=== PATIENT | male | born 1960 | race Caucasian/White ===

== ENCOUNTER 2020-02-05 22:26 | Emergency (ER) | payer BC, SELFPAY ==
--- NOTE | ~2020-02-05 | XR_ITS ---
EXAMINATION: XR chest 1V portable EXAM DATE: 02/05/2020 22:57 INDICATION: Right-sided chest pain, history high blood pressure. TECHNIQUE: Portable AP frontal chest x-ray was obtained. Comparison is made to prior examination from 05/07/2018. FINDINGS: The lungs are clear. There are no pleural effusions. The cardiomediastinal silhouette is within normal limits. There is no pneumothorax suspected. The bones and soft tissues are unremarkab le. IMPRESSION: No acute cardiopulmonary findings. Reviewed, dictated and finalized at location A.
--- NOTE | 2020-02-05 22:30 | ED.CHESTPAIN ---
HPI - Chest Pain General Chief Complaint: Chest Pain Stated Complaint: cp Time Seen by Provider: 02/05/20 22:29 Source: patient and RN notes reviewed Mode of arrival: other Limitations: no limitations History of Present Illness HPI narrative: Pt is a 59 y/o male who presents to the ED with c/o intermittent left sided chest pain that began 2 weeks ago, but has not gone away. Pt describes his pain as a muscle cramp. Pt has his pain at rest, but his pain gets better with activity. He states that his pain will last for 1 minute or 5-10 minutes. Pt denies any new lifting, new exercises, and being around any sick contacts. Pt also denies a fever, dyspnea, and chills. MD complaint: chest pain Onset (ago): week(s) (2) Timing of current episode: still present and other (intermittent) Onset: during rest Pain location: left chest Pain radiation: none Quality: other (muscle cramp) Relieving factors: movement Associated symptoms: other (denies associated symptoms) Treatment prior to arrival: none Related Data Home Medications Medication Instructions Recorded Confirmed amlodipine 5 mg tablet 5 mg PO DAILY 09/15/19 amlodipine 5 mg tablet 5 mg PO DAILY 09/17/19 Allergies Allergy/AdvReac Type Severity Reaction Status Date / Time No Known Allergies Allergy Unverified 05/07/18 12:01 Review of Systems Review of Systems: All systems reviewed & are unremarkable except as noted in HPI and below Constitutional: Constitutional: Denies chills and Denies fever(s) Cardiovascular: Cardiovascular: Reports chest pain (left sided) Respiratory: Respiratory: Denies dyspnea PMFSH Past Medical History Medical History (Updated 02/07/20 @ 00:00 by Leesa Dudley) Ear infection HTN (hypertension) Hyperlipidemia Type II diabetes mellitus Surgical History Surgical History (Updated 02/05/20 @ 22:50 by Alejandra Corley) Surgical history unknown Social History Social History Smoking status: Never smoker Alcohol intake: never Exam Narrative: Exam Narrative: General appearance: Well-developed, well-nourished Skin: Normal color Head: Normocephalic, nontraumatic Eyes: Clear conjunctiva ENT: Oropharynx normal, ears normal, nose normal Neck: Supple, nontender Chest and respiratory: Airway patent, no respiratory distress, no accessory muscle use Heart: Regular rate/rhythm Abdomen: Soft, nontender, no organomegaly, quiet bowel sounds Vascular: Normal peripheral pulses, normal capillary refill. 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 Waiting for d-dimer results. Lela our nurse practitioner will follow. Date: 02/06/20 Time: 00:00 Vital Signs Vital signs: Vital Signs Temperature 37.2 C 02/05/20 22:34 Pulse Rate 75 02/05/20 22:34 Respiratory Rate 18 02/05/20 22:34 Blood Pressure 171/96 H 02/05/20 22:34 Pulse Oximetry 99 02/05/20 22:34 Temperature 37.2 C 02/05/20 22:34 Pulse Rate 77 02/06/20 00:29 Respiratory Rate 16 02/06/20 00:29 Blood Pressure 132/90 02/06/20 00:29 Pulse Oximetry 97 02/06/20 00:29 MDM - Chest Pain MDM Narrative Medical decision making narrative: Intermittent right chest pain, sharp, comes at rest, resolved with activity. Cardiac cause is less likely. Patient works in physical job. Patient denies any fever, chills, nausea, vomiting, respiratory symptoms or radiation of pain. History of hypertension, does not smoke or drink. Patient lives alone. My plan to get some labs, chest x-ray, further
[2020-02-05 22:34] VITALS: BP 171/96; PULSE 75; RESP 18; TEMP 37.2; O2SAT 99
--- NOTE | 2020-02-05 22:38 | ECG_ITS ---
Measurements Intervals [place] Rate: 64 P: 34 VA: 203 QRS: 35 QRSD: 85 T: 58 QT: 354 QTc: 367 Interpretive Statements SINUS RHYTHM EARLY PRECORDIAL R/S TRANSITION BASELINE ARTIFACT- I, II, III BORDERLINE ECG Electronically Signed On 02-06-2020 7:12:39 CDT by Price Vernon D.O.
[2020-02-05 23:12] VITALS: PULSE 76
[2020-02-05 23:14] LABS: Basophils Absolute Auto 0.1 K/mm3 (0.0-0.1); Basophils Percent Auto 0.5 % (0.2-1.2); Eosinophils Absolute Auto 0.2 K/mm3 (0-0.3); Eosinophils Percent Auto 1.9 % (0-4.4); Hematocrit 47.9 % (42.0-52.0); Hemoglobin 15.3 g/dL (14.0-18.0); Immature Granulocyte Absolute 0.08 K/mm3 (0.00-0.031); Immature Granulocyte Percent A 0.8 % (0-0.5); Lymphocytes Absolute Auto 2.91 K/mm3 (0.9-3.2); Lymphocytes Percent Auto 30.4 % (18.3-44.2); Mean Corpuscular HGB Conc 31.9 g/dl (32-36); Mean Corpuscular Hemoglobin 29.3 pg (26-34); Mean Corpuscular Volume 91.8 fl (80-100); Mean Platelet Volume 10.9 fl (7.4-10.4); Monocytes Absolute Auto 0.9 K/mm3 (0.1-0.6); Neutrophils Absolute Auto 5.5 K/mm3 (1.3-6.7); Neutrophils Percent Auto 57.4 % (45.5-73.1); Platelet Count Result 216 k/mm3 (150-375); Red Blood Count 5.22 M/mm3 (4.6-6.20); Red Cell Distribution Width 13.8 % (11.5-14.5); White Blood Count 9.6 K/mm3 (4.5-10.0)
[2020-02-05 23:17] VITALS: BP 150/95; PULSE 81; RESP 12; O2SAT 95
[2020-02-05 23:33] LABS: Alanine Aminotransferase 26 U/L (4-50); Albumin Level 4.1 g/dL (3.5-5.1); Alkaline Phosphatase 47 U/L (38-126); Aspartate Amino Transferase 24 U/L (17-59); Bilirubin,Total 0.2 mg/dL (0.2-1.3); Blood Urea Nitrogen 24 mg/dL (9-20); Calcium 9.2 mg/dL (8.4-10.2); Carbon Dioxide 26 mmol/L (22-30); Chloride 105 mmol/L (98-107); Estimated CRCL calculation 64 ml/min; Estimated Glomerular Filt Rate 52; Glucose 135 mg/dL (75-110); Potassium 3.6 mmol/L (3.4-5.0); Sodium 139 mmol/L (137-145)
[2020-02-05 23:37] LABS: Troponin I < 0.012 ng/mL (0.000-0.034)
[2020-02-06 00:12] LABS: D Dimer 0.27 ug/mL (<0.48)
[2020-02-06 00:29] VITALS: BP 132/90; PULSE 77; RESP 16; O2SAT 97
== END 2020-02-06 00:15 | disposition home or self-care (01) ==
PROVIDERS: Emergency Provider Emergency Medicine; PCP Emergency Medicine
DX: R07.9 Chest pain, unspecified (principal); I10 Essential (primary) hypertension; E78.5 Hyperlipidemia, unspecified; E11.9 Type 2 diabetes mellitus without complications; R94.31 Abnormal electrocardiogram [ECG] [EKG]
CPT/HCPCS: 36415; 71045; 80053; 84484; 85025; 85380; 93005; 99284

== ENCOUNTER 2021-03-01 21:20 | Emergency (ER) | payer BC, SELFPAY ==
--- NOTE | ~2021-03-01 | XR_ITS ---
EXAMINATION: XR finger 3rd LT min 2V DATE: 03/01/2021 22:13 INDICATION: Left hand third digit injury. TECHNIQUE: 3 views of left hand third digit were obtained. COMPARISON: None. FINDINGS: Bone alignment is normal. No fracture. 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 No radiopaque foreign body. IMPRESSION: 1. No fracture or radiopaque foreign body. Reviewed, dictated and finalized at location A.
[2021-03-01 21:23] VITALS: BP 178/107; PULSE 52; RESP 18; TEMP 36.4; O2SAT 97
[2021-03-01] MEDS: TETANUS,DIPHTHERIA,AC PERTUSSIS ADULT (0.5 ML) BOOSTRIX IM (22:06)
--- NOTE | 2021-03-01 22:44 | PC.NURSE ---
Patient washing hands with soap and water in sink at this time. Patient's finger numbed by the EDP prior to this cleaning. Patient still reports discomfort with cleaning the finger.
--- NOTE | 2021-03-01 22:48 | ED.WOUNDLAC ---
HPI - Wound/Laceration General Chief Complaint: Wound/Laceration Stated Complaint: finger lac Time Seen by Provider: 03/01/21 22:22 History of Present Illness HPI narrative: Patient is a 60-year-old male who presents ER with laceration to his left third digit. He was working with a band saw when he caught his finger. No numbness or tingling. He maintains full range of motion. Unknown last tetanus shot. Occurred around 8:30 PM. Related Data Allergies Allergy/AdvReac Type Severity Reaction Status Date / Time No Known Allergies Allergy Verified 03/01/21 21:51 Review of Systems Review of Systems: All systems reviewed & are unremarkable except as noted in HPI and below Musculoskeletal: Musculoskeletal: Denies arthralgias, Denies joint swelling and Denies muscle cramps Integumentary/Breasts: Skin/Breast: Denies pruritus and Denies erythema Comments: Finger laceration Neurologic: Denies focal weakness and Denies numbness PMFSH Past Medical History Medical History Ear infection HTN (hypertension) HTN (hypertension) Hyperlipidemia Type II diabetes mellitus Surgical History Surgical History Surgical history unknown Social History Social History Smoking status: Never smoker Alcohol intake: never Exam Narrative: Exam Narrative: GENERAL: Well-appearing, well-nourished, and in no acute distress. HEAD: Normocephalic, atraumatic. EXTREMITIES: Normal range of motion. Left third digit at the fingertip over the fat pad with flap laceration 3 cm in length. No debris seen after thorough irrigation. No exposure under of bone or tendon in a bloodless field. SKIN: Warm, dry, no rash. NEURO: No focal deficits. Alert and oriented x3. PSYCH: Normal mood and affect. Course Course Emergency Course: Wound repaired. Neurovascular intact with normal range of motion of the affected digit. Patient educated on return precautions and verbalized understanding. Vital Signs Vital signs: Vital Signs Temperature 97.6 F 03/01/21 21:23 Pulse Rate 52 L 03/01/21 21:23 Respiratory Rate 18 03/01/21 21:23 Blood Pressure 178/107 H 03/01/21 21:23 Pulse Oximetry 97 03/01/21 21:23 Temperature 97.6 F 03/01/21 21:23 Pulse Rate 52 L 03/01/21 21:23 Respiratory Rate 18 03/01/21 21:23 Blood Pressure 178/107 H 03/01/21 21:23 Pulse Oximetry 97 03/01/21 21:23 Procedures Laceration Laceration 1: Date: 03/01/21 Time: 23:15 Site: other (left 3rd finger) Size (cm): 3 Description: flap and clean Depth: simple, single layer Local Anesthetic: lidocaine 1% and with epi Amount of anesthesia used (mL): 1 Pre-repair: wound explored and irrigated extensively ====== Skin Level ====== Skin layer closed with: nylon Size (cm): 5-0 Number of sutures: 6 Technique: simple, interrupted ====== Subcutaneous Layer ====== ====== Muscle Layer ====== ====== Tendon Layer ====== Discharge Plan Discharge Clinical Impression: Finger laceration Patient Disposition: Home, Self-Care Condition: Stable Instructions: Laceration (ED) Additional Instructions: You will need to have your sutures removed in 14 days. Return to the ER or follow-up with your primary care doctor to have this performed. Return the ER immediately if you develop fever over 100.4 ?F, there is pus draining out of your wound, you have red streaking up your arm, or you have additional concerns. Prescriptions: No Action metoprolol succinate [Toprol XL] 100 mg tablet extended release 24 hr 100 mg PO DAILY Qty: 30 RF: 2 Follow-up/Referrals: Jean-Pierre Snowden MD [Primary Care Provider] - 2 Weeks
--- NOTE | 2021-03-01 23:08 | PC.NURSE ---
Patient moved to room 10. Report to KENTRELL Copeland
--- NOTE | 2021-03-01 23:11 | PC.NURSE ---
EDMD at bedside for laceration repair. Pt presents to ED with complaints of laceration to 2nd digit of left hand. Pt states laceration occurred with a saw at approx 2030. 2cm flap laceration noted. Mild bleeding noted. Pt complaining of minimal pain as finger has been numbed. Laceration repair in progress and pt tolerating well. No complaints or concerns voiced at this time. Pt educated on wound care and cleanliness.
== END 2021-03-01 23:52 | disposition home or self-care (01) ==
PROVIDERS: Emergency Provider Emergency Medicine; PCP Emergency Medicine
DX: S61.213A Laceration without foreign body of left middle finger without damage to nail, initial encounter (principal); Z23 Encounter for immunization; I10 Essential (primary) hypertension; E78.5 Hyperlipidemia, unspecified; E11.9 Type 2 diabetes mellitus without complications; W31.2XXA Contact with powered woodworking and forming machines, initial encounter
CPT/HCPCS: 12002; 73140; 90471; 90714; 90715; 99282

== ENCOUNTER 2022-11-24 01:48 | Inpatient (IN) | payer BC, SELFPAY ==
[2022-11-24] VITALS (24 sets, daily range): BP systolic 110–166; BP diastolic 80–119; PULSE 63–97; RESP 17–24; TEMP 36.2–36.7; O2SAT 90–98; BMI 44.6
--- NOTE | 2022-11-24 | ECHO_ITS ---
Patient Info Name: Jean-Pierre Partida Age: 62 years : 1960 Gender: Male Ht: 67 in Wt: 285 lbs BSA: 2.54 m2 HR: 65 bpm BP: 147 / 91 mmHg Technical Quality: Good Exam Date: 11/24/2022 10:49 AM Exam Location: [facility] Patient Status: Inpatient Admit Date: 11/24/2022 Staff Ordering Physician: John Palma MD Application Coordinator: Eliel Hernandez RDCS, RT Attending Provider: Anurag Kennedy MD Exam Type: CA echo doppler color flow Study Info Indications R06.02 - Shortness of breath Complete two-dimensional, color flow and Doppler transthoracic echocardiogram is performed. Strain analysis performed. Summary 1. Complete two-dimensional, color flow and Doppler transthoracic echocardiogram is performed. 2. Left ventricular chamber dimension is normal. 3. Left ventricular systolic function is normal, estimated at 65-70%. 4. There is mildly increased left ventricular wall thickness. 5. The left ventricular diastolic function is grade I diastolic dysfunction. 6. E/e' 5 is not elevated. 7. Global longitudinal strain is abnormal at -10.4%. 8. No pulmonary hypertension, estimated pulmonary arterial systolic pressure is 38 mmHg. Left Ventricle E/e' 5 is not elevated. Global longitudinal strain is abnormal at -10.4%. Left ventricular chamber dimension is normal. Left ventricular systolic function is normal, estimated at 65-70%. There is mildly increased left ventricular wall thickness. The left ventricular diastolic function is grade I diastolic dysfunction. Right Ventricle Right ventricular systolic function is normal and with normal TAPSE 2.1 cm. Right ventricular chamber dimension is normal. Left Atria Left atrial chamber dimension is normal. Right Atria Right atrial chamber dimension is normal. Aortic Valve The aortic valve is trileaflet. There is no aortic valve stenosis. There is no aortic valve regurgitation. Pulmonic Valve There is no pulmonic regurgitation. Mitral Valve There is no mitral valve stenosis. There is no mitral valve regurgitation. Tricuspid Valve There is no tricuspid valve regurgitation. No pulmonary hypertension, estimated pulmonary arterial systolic pressure is 38 mmHg. Pericardium/Pleural There is no pericardial effusion. Inferior Vena Cava Normal inferior vena cava with >50% collapse upon inspiration consistent with normal right atrial pressure, 5 mmHg. Aorta The aortic root size at the sinus of Valsalva is normal. Left Ventricular Outflow Tract Name Value Normal LVOT 2D LVOT Diameter 2.1 cm LVOT Doppler LVOT Peak Gradient 3 mmHg LVOT Mean Gradient 2 mmHg LVOT VTI 17 cm LVOT VTI/AV VTI Ratio 0.7 LVOT Stroke Volume 61 ml LVOT CO 3.8 l/min LVOT CI 1.5 l/min/m2 Mitral Valve Name Value Normal
--- NOTE | ~2022-11-24 | CT_ITS ---
Clinical Indication: Shortness of breath CT Scan of the Chest with Contrast: Technique: Contiguous sections were acquired throughout the chest after intravenous administration of 100 cc of Omnipaque 350. Coronal maximum intensity projection 3-D reconstructions were created by wang crouch technologist. Dose reduction technique was used on this scan by utilizing automated exposure contr ol and iterative reconstruction technique. The dose-length product (DLP) was 1000.87 mGy-cm. Findings: There is no evidence of any significant mediastinal, hilar or axillary lymphadenopathy. There is a la rge saddle pulmonary embolus with extensive clot burden in the right and left main pulmonary arteries , especially the right side, with extension into lobar and segmental lower arteries, especially the l ower lobes. There is no evidence of aortic dissection or aneurysm. There is apparent increased right ventricle-left ventricle ratio. There is no evidence of pleural or pericardial effusion. A 5 mm noncalcified right lower lobe pulmonary nodule noted (axial image 64). Additional 4 mm noncalc ified right lower lobe pulmonary nodule present (axial image 73). 4 mm left lower lobe pulmonary nodu le noted (axial image 73).. Images through the upper abdomen reveal no abnormalities. Impression: Extensive pulmonary embolus, including large saddle embolus with extensive involvement of the right a nd left main pulmonary arteries, as detailed above. Apparent increased right ventricle-left ventricle ratio, which suggests the possibility of right hear t strain. Subcentimeter pulmonary nodules, as detailed above. According to Fleischner Society criteria, for a l ow-risk patient, no further follow-up required. For a high-risk patient, consider follow-up [address] scan. Acute findings discussed with Dr. Palma at the 11:37 AM on 11/24/2022. Reviewed, dictated and finalized at location M. WORT SETTLER Impression: Extensive pulmonary embolus, including large saddle embolus with extensive invo lvement of the right and left main pulmonary arteries, as detailed above. Apparent increased right ventricle-left ventricle ratio, which suggests the pos sibility of right heart strain. Subcentimeter pulmonary nodules, as detailed above. According to Fleischner Soc iety criteria, for a low-risk patient, no further follow-up required. For a hig h-risk patient, consider follow-up [address] scan. Acute findings discussed with Dr. Palma at the 11:37 AM on 11/24/2022.
--- NOTE | ~2022-11-24 | US_ITS ---
EXAMINATION: US venous doppler [facility] DATE: 11/24/2022 15:06 INDICATION: Lower limb pain and swelling TECHNIQUE: Grayscale ultrasound images without and with compression and Doppler ultrasound images of the bilateral lower extremity veins were obtained. COMPARISON: None. FINDINGS: Noncompressible occlusive appearing thrombus extending throughout the right superficial femoral vein into the popliteal vein and peroneal veins at the calf. The visualized portions of right common femor al vein, profunda (deep) femoral vein, posterior tibial veins, gastrocnemius vein and greater sapheno us vein outflow are patent. The visualized portions of left common femoral vein, profunda femoral vein, femoral vein, popliteal v ein, posterior tibial veins, peroneal veins, gastrocnemius vein and greater saphenous vein outflow ar e patent. IMPRESSION: 1. Extensive occlusive appearing deep venous thrombosis throughout the left superficial femoral vein, popliteal vein and extending to the peroneal veins at the calf. 2. No deep venous thrombosis in the left lower limb. Reviewed, dictated and finalized at location A. ATURE SET BUILDER IMPRESSION: 1. Extensive occlusive appearing deep venous thrombosis throughout the left sup erficial femoral vein, popliteal vein and extending to the peroneal veins at th e calf. 2. No deep venous thrombosis in the left lower limb.
--- NOTE | ~2022-11-24 | XR_ITS ---
Clinical Indication: Shortness of breath PA and lateral views of the chest: Comparison: 02/05/2020 Findings: The lungs are clear, without evidence of focal consolidation or pleural effusion. Cardiome diastinal silhouette is within normal limits. Clear lungs. Probable calcified left hilar lymph nodes noted. Bones and soft tissues are unremarkable. Impression: The lungs. Reviewed, dictated and finalized at location . PRESIDENT FINANCIAL Impression: The lungs.
--- NOTE | 2022-11-24 01:54 | ECG_ITS ---
Measurements Intervals [place] Rate: 89 P: 47 AK: 183 QRS: 18 QRSD: 84 T: -29 QT: 373 QTc: 455 Interpretive Statements SINUS RHYTHM CONSIDER INFERIOR INFARCT, AGE INDETERMINATE T WAVE ABNORMALITY IN ANTERIOR LEADS- CONSIDER ISCHEMIA BASELINE ARTIFACT- I, II, III ABNORMAL ECG COMPARED TO ECG 02/05/2020 22:32:11 T WAVE ABNORMALITY NOW PRESENT Electronically Signed On 11-24-2022 8:17:30 PRODUCTION OPERATIONS INSPECTOR by Price Vernon D.O.
[2022-11-24 02:23] LABS: Basophils Absolute Auto 0.1 K/mm3 (0.0-0.1); Basophils Percent Auto 0.7 % (0.2-1.2); Eosinophils Absolute Auto 0.2 K/mm3 (0-0.3); Eosinophils Percent Auto 1.7 % (0-4.4); Hematocrit 50.9 % (42.0-52.0); Hemoglobin 16.4 g/dL (14.0-18.0); Immature Granulocyte Absolute 0.09 K/mm3 (0.00-0.031); Immature Granulocyte Percent A 0.8 % (0-0.5); Lymphocytes Absolute Auto 2.37 K/mm3 (0.9-3.2); Lymphocytes Percent Auto 21.5 % (18.3-44.2); Mean Corpuscular HGB Conc 32.2 g/dl (32-36); Mean Corpuscular Hemoglobin 29.7 pg (26-34); Mean Corpuscular Volume 92.2 fl (80-100); Mean Platelet Volume 10.6 fl (7.4-10.4); Monocytes Absolute Auto 0.8 K/mm3 (0.1-0.6); Monocytes Percent Auto 7.3 % (2.6-8.5); Neutrophils Absolute Auto 7.5 K/mm3 (1.3-6.7); Platelet Count Result 199 k/mm3 (150-375); Red Blood Count 5.52 M/mm3 (4.6-6.20); Red Cell Distribution Width 14.6 % (11.5-14.5)
[2022-11-24 02:35] LABS: INR 1.1; Prothrombin Time 13.3 Seconds (11.1-14.7)
[2022-11-24 02:36] LABS: Partial Thromboplastin Time 26.9 SECONDS (22.3-36.8)
[2022-11-24] MEDS: IPRATROPIUM BR 0.02% INH SOLN 0.5 MG/2.5 ML VIAL INHALATION (03:05)
[2022-11-24] MEDS: ALBUTEROL SULFATE NEB 2.5 MG/3 ML INH 5 MG INHALATION (03:05)
[2022-11-24 03:08] LABS: Alanine Aminotransferase 37 U/L (6-50); Alkaline Phosphatase 42 U/L (38-126); Anion Gap 7 mmol/L (8-16); Aspartate Amino Transferase 31 U/L (17-59); Bilirubin,Total 0.5 mg/dL (0.2-1.3); Blood Urea Nitrogen 21 mg/dL (9-20); Calcium 9.4 mg/dL (8.4-10.2); Carbon Dioxide 27 mmol/L (22-30); Chloride 106 mmol/L (98-107); Estimated CRCL calculation 75 ml/min; Estimated Glomerular Filt Rate > 60; Glucose 123 mg/dL (65-110); Lipase 64 U/L (23-300); Potassium 3.8 mmol/L (3.4-5.0); Sodium 140 mmol/L (137-145)
[2022-11-24 03:33] LABS: Troponin I 0.037 ng/mL (0.000-0.034)
[2022-11-24 04:55] LABS: Influenza A QL RT-PCR Negative (Negative); Influenza B QL RT-PCR Negative (Negative); RSV RNA, RT-PCR Negative (Negative); SARS-CoV-2 RNA PCR Negative
--- NOTE | 2022-11-24 05:11 | ED.SOB ---
HPI - SOB/Dyspnea General Chief Complaint: Shortness of Breath/Dyspnea Stated Complaint: sob, HTN, Time Seen by Provider: 11/24/22 02:43 History of Present Illness HPI Narrative: Patient is a 62-year-old male who presents ER with shortness of breath. Ongoing over the last couple weeks. Reports he cannot walk to his car and back without being extremely short of breath. Reports he initially had some runny nose about a month ago that has persisted. He does have some postnasal drip that occurs. No wheezing. No fevers or chills or sweats. He reports. He was having related to shortness of breath. No sharp pain in his chest. No pain with deep breath. No leg edema. No history of MA. Related Data Allergies Allergy/AdvReac Type Severity Reaction Status Date / Time No Known Allergies Allergy Verified 11/24/22 01:48 Review of Systems Review of Systems: All systems reviewed & are unremarkable except as noted in HPI and below Constitutional: Constitutional: Denies chills and Denies fever(s) ENT: Denies sore throat Comments: Rhinorrhea Cardiovascular: Cardiovascular: Reports chest pain (heaviness), Denies rapid heart rate and Denies radiating jaw, neck or arm pain Respiratory: Respiratory: Denies cough and Reports dyspnea Comments: Shortness of breath with exertion Gastrointestinal: Gastrointestinal: Denies abdominal pain, Denies nausea and Denies vomiting PMFSH Past Medical History Medical History Ear infection HTN (hypertension) HTN (hypertension) Hyperlipidemia Type II diabetes mellitus Surgical History Surgical History Surgical history unknown Social History Social History Smoking status: Never smoker Alcohol intake: never Exam Narrative: GENERAL: Well-appearing, obese, and in no acute distress. HEAD: Normocephalic, atraumatic. EYES: PERRL and EOMI. ENT: Mucous membranes moist. CHEST: Clear to auscultation. No respiratory distress. HEART: Regular rate and rhythm. Normal peripheral pulses. ABDOMEN: Soft, nontender, nondistended. EXTREMITIES: Normal range of motion. No edema. SKIN: Warm, dry, no rash. NEURO: Alert and oriented x3. PSYCH: Normal mood and affect. Course Course Emergency Course: Patient without persistent chest pain, only shortness of breath when he is exerting himself. Patient feels provement after nebulizer treatment. Discussed elevated troponin and recommendation for admission for trending of the troponin. Patient likely will need a stress test as well. Patient verbalized understanding treatment plan. Vital Signs Vital signs: Vital Signs Temperature 97.9 F 11/24/22 01:50 Pulse Rate 97 11/24/22 01:50 Respiratory Rate 20 11/24/22 01:50 Blood Pressure 164/119 H 11/24/22 01:50 Pulse Oximetry 90 11/24/22 01:50 Oxygen Delivery Room Air 11/24/22 01:50 Temperature 97.9 F 11/24/22 01:50 Pulse Rate 70 11/24/22 05:21 Respiratory Rate 19 11/24/22 05:21 Blood Pressure 140/89 11/24/22 05:21 Pulse Oximetry 93 11/24/22 05:21 Oxygen Delivery Room Air 11/24/22 02:43 MDM - SOB/Dyspnea Lab Data 11/24/22 02:05 11/24/22 02:49 Labs: Lab Results 11/24/22 11/24/22 11/24/22 Range/Units 02:05 02:05 02:49 WBC 11.0 H (4.5-10.0) K/mm3 RBC 5.52 (4.6-6.20) M/mm3 Hgb 16.4 (14.0-18.0) g/dL Hct 50.9 (42.0-52.0) % MCV 92.2 (80-100) fl MCH 29.7 (26-34) pg MCHC 32.2 (32-36) g/dl RDW 14.6 H (11.5-14.5) % Plt Count 199 (150-375) k/mm3 MPV 10.6 H (7.4-10.4) fl Immature Gran % (Auto) 0.8 H (0-0.5) % Neut % (Auto) 68.0 (45.5-73.1) % Lymph % (Auto) 21.5 (18.3-44.2) % [place] % (Auto) 7.3 (2.6-8.5) % Eos % (Auto) 1.7 (0-4.4) % Baso % (Auto) 0.7 (0.2-1.2) % Lymph # (Auto) 2.37
--- NOTE | 2022-11-24 07:14 | PC.NURSE ---
Report given to Lynette PFEIFFER
--- NOTE | 2022-11-24 09:15 | ADMGEN ---
This patient, Jean-Pierre Partida, was admitted to IMU Room 206-01. Patient/family oriented to hospital policies and general routines including ID bracelet, bed and alarms, visiting hours, pain management, procedures, bathroom and other care routines, personal items, smoking policy, room service/diet, and visiting hours. Information on how to activate the Rapid Response Team has been discussed. Patient/Family are encouraged to report perceived risks to care and to ask questions if they do not understand what they are told or what they should do.
--- NOTE | 2022-11-24 09:54 | PM.IMHP ---
H&P: HPI History of Present Illness Date/Time: 11/24/22 09:54 Chief Complaint: shortness of breath Narrative: Patient is a 62-year-old male who presents with shortness of breaht, which is worsening over past month or so. but really got worse this last week. he was not able to ambulate without getting short of breath. he also felt chest tightness in the retrosternum at that time. he reports sinus issues which is chronic. he is supposed to have sleep apnea testing but did not follow up. he also reprots he has right leg swelling whichi is chronic, no hx of dvt. he had injury and tear of the muscle in the past on his right leg. no abdominal pain, nausea, vomiting. has cough due to postnasal drip. no fever, chills. Review of Systems Review of Systems: - CONSTITUTIONAL: Denies weight loss, fever and chills. - HEENT: Denies changes in vision and hearing - RESPIRATORY: reprots SOB and cough. - CV: Denies palpitations and CP. - GI: Denies abdominal pain, nausea, vomiting and diarrhea. - : Denies dysuria and urinary frequency. - MSK: Denies myalgia and joint pain. - SKIN: Denies rash and pruritus. - NEUROLOGICAL: Denies headache and syncope. - PSYCHIATRIC: Denies recent changes in mood. Denies anxiety and depression. All systems reviewed & are unremarkable except as noted in HPI and below PMFSH Past Medical History Medical History (Updated 11/24/22 @ 10:23 by John Palma MD) Ear infection HTN (hypertension) HTN (hypertension) Hyperlipidemia Type II diabetes mellitus Surgical History Surgical History Surgical history unknown Social History Social History Smoking status: Never smoker Alcohol intake: never Meds Home Medications and Allergies Home Medications Medication Instructions Recorded Confirmed Type metoprolol succinate 100 mg 100 mg PO DAILY #90 tabs 08/04/21 Rx tablet,extended release 24 hr (Toprol XL) Allergies Allergy/AdvReac Type Severity Reaction Status Date / Time No Known Allergies Allergy Verified 11/24/22 01:48 Vital Signs Vital Signs - 24 hr 11/24/22 01:50 11/24/22 02:43 11/24/22 02:45 Temperature 97.9 F Pulse Rate 97 80 Respiratory Rate 20 24 H Blood Pressure 164/119 H 160/89 H Pulse Oximetry 90 93 96 Oxygen Delivery Room Air Room Air 11/24/22 03:06 11/24/22 03:22 11/24/22 03:38 Temperature Pulse Rate 68 78 76 Respiratory Rate 18 17 17 Blood Pressure 110/83 Pulse Oximetry 92 Oxygen Delivery 11/24/22 04:09 11/24/22 05:21 11/24/22 07:50 Temperature Pulse Rate 70 66 Respiratory Rate 19 20 Blood Pressure 142/86 H 140/89 131/104 H Pulse Oximetry 93 96 Oxygen Delivery 11/24/22 08:00 Temperature 97.4 F L Pulse Rate 89 Respiratory Rate 20 Blood Pressure 147/91 H Pulse Oximetry 94 Oxygen Delivery Exam Narrative: GENERAL: mrobid obesity, in no acute distress. HEAD: Normocephalic, atraumatic. thick neck EYES: PERRL and EOMI. ENT:? Mucous membranes moist. CHEST: diminished with end expiratory wheeze at bases? No respiratory distress. HEART: Regular rate and rhythm. ? Normal peripheral pulses. ABDOMEN: Soft, nontender, nondistended. EXTREMITIES: Normal range of motion.?right lower extermity edema postiive SKIN: Warm, dry, no rash. stasis dermatitis on right leg NEURO: ? Alert and oriented x3. no focal deficit PSYCH: Normal mood and affect. H&P: Results Labs Labs: Short CBC 11/24/22 Range/Units 02:05 WBC 11.0 H (4.5-10.0) K/mm3 Hgb 16.4 (14.0-18.0) g/dL Hct 50.9 (42.0-52.0) % Plt Count 199 (150-375) k/mm3 BMP 11/24/22 02:49 Sodium 140 Potassium 3.8 Chloride 106 Carbon Dioxide 27 BUN 21 H Creatinine 1.20 Glucose 123 H Calcium 9.4 Cardiac Enzymes 11/24/22 11/24/22 Range/Units 02:49 05:38 Troponin I 0.037 H* 0.030 (0.000-0.
[2022-11-24 10:55] LABS: Cholesterol 201 mg/dL (0-200); HDL Direct 33 mg/dL; Triglycerides 217 mg/dL (<150)
[2022-11-24 11:04] LABS: Hemoglobin A1C 5.9 % (<5.7)
[2022-11-24 11:07] LABS: LDL Cholesterol Direct 136 mg/dL
[2022-11-24] MEDS: LOSARTAN POTASSIUM 50 MG TABLET PO (12:00)
[2022-11-24] MEDS: ENOXAPARIN 100 MG/ML SYRINGE SUB-Q ×2 (12:22→21:08)
[2022-11-24] MEDS: ENOXAPARIN 30 MG/0.3 ML SYRINGE SUB-Q ×2 (12:22→21:08)
[2022-11-24] MEDS: METOPROLOL SUCCINATE EXT REL 100 MG TABCR PO (14:01)
[2022-11-24] MEDS: hydrALAZINE HCL 20 MG/ML VIAL 10 MG IV PUSH (17:20)
[2022-11-24] MEDS: FLUTICASONE PROPIONATE 0.05% NA SPR 16 GM BTL (*BKC) 1 SPRAY NASAL (21:07)
[2022-11-24] MEDS: amLODIPine BESYLATE 5 MG TABLET PO (21:07)
[2022-11-25] VITALS (15 sets, daily range): BP systolic 123–158; BP diastolic 66–93; PULSE 56–85; RESP 20–24; TEMP 36.2–36.6; O2SAT 93–100
[2022-11-25] MEDS: ENOXAPARIN 30 MG/0.3 ML SYRINGE SUB-Q ×2 (09:06→21:26)
[2022-11-25] MEDS: ENOXAPARIN 100 MG/ML SYRINGE SUB-Q ×2 (09:07→21:27)
[2022-11-25] MEDS: LOSARTAN POTASSIUM 50 MG TABLET PO (09:08)
[2022-11-25] MEDS: METOPROLOL SUCCINATE EXT REL 100 MG TABCR PO (09:08)
[2022-11-25] MEDS: FLUTICASONE PROPIONATE 0.05% NA SPR 16 GM BTL (*BKC) 1 SPRAY NASAL ×2 (09:08→21:26)
--- NOTE | 2022-11-25 10:58 | PM.IMPN ---
Progress Note: A&P Assessment and Plan (1) Type II diabetes mellitus: Code(s): E11.9 - Type 2 diabetes mellitus without complications Status: Acute (2) Hyperlipidemia: Code(s): E78.5 - Hyperlipidemia, unspecified Status: Acute (3) HTN (hypertension): Code(s): I10 - Essential (primary) hypertension Status: Acute (4) Screening PSA (prostate specific antigen): Code(s): Z12.5 - Encounter for screening for malignant neoplasm of prostate Status: Acute (5) Excessive daytime sleepiness: Code(s): G47.19 - Other hypersomnia Status: Acute (6) Pulmonary embolism: Code(s): I26.99 - Other pulmonary embolism without acute cor pulmonale Status: Acute Plan Continue Lovenox. 2D echo ejection fraction 65%. seen by Cardiology. Still oxygen Continue nebulizer treatment. Yearly eye exam and foot exam. HBA1c 5.9 ( goal <7.0%) , Renal functions, Liver panel every 3 months Monitor vitamin B12 levels LDL is 136 Will atorvastatin 40 mg daily Optimize SAMUEL-inhibitor and statin currently on losartan and metoprolol, amlodipine Routine glucose monitoring. Watch for Hypoglycemia. BMI goal < 25 65% ejection fraction. EKG Consider SGLT2 inhibitors if okay with Cards Antiplatelet & Statin therapy Loop diuretics as indicate Patient educated about titrating diuretics at home based on weight blood pressure and symptoms. Current blood pressure 158/90. Optimize blood pressure < 130/80 Time Spent With Patient Time: DVT prophylaxis. GI prophylaxis. All records reviewed Discussed plan of care with the nursing staff and with the patient in detail. Answered all questions and concerns from the patient. All labs have been reviewed. Code status updated dictation may have been done utilizing a voice recognition system. Attempts have been made to correct errors. However, there may be uncorrected grammatical, spelling, and recognition errors present. Subjective Date/time seen: 11/25/22 10:58 Interval history: Appears comfortable still has some shortness of breath no cough much improved from yesterday. Patient also had a sleep apnea test done last night Exam Narrative: GENERAL: Well appearing, well-nourished, non-toxic, in no acute distress. HEAD: Normocephalic, atraumatic. NECK: Supple. No adenopathy, no masses. RESPIRATORY: Airway patent, respirations nonlabored. Clear to auscultation bilaterally, no rales, rhonchi, wheezing. CARDIOVASCULAR: Regular rate and rhythm without murmurs, rubs, or gallops. Peripheral pulses 2+ and equal bilaterally. ABDOMINAL: Soft, nontender, nondistended, no hepatosplenomegaly. Normoactive BS. MUSCULOSKELETAL: no Epigastric and no hypochondrial tenderness SKIN: Warm, dry, normal color. No rashes. NEURO: A&O X3. Moves all extremities PSYCHIATRIC: Appropriate mood and affect. Normal interaction. Objective Data Vital Signs Vital Signs: Vital Signs - 24 hr 11/24/22 11:52 11/24/22 14:01 11/24/22 15:56 Temperature 36.2 C L 36.6 C Pulse Rate 78 74 72 Respiratory Rate 20 22 H Blood Pressure 160/103 H 166/110 H Pulse Oximetry 90 95 Oxygen Delivery Oxygen Flow Rate 11/24/22 15:57 11/24/22 12:00 11/24/22 14:00 Temperature Pulse Rate 78 75 Respiratory Rate Blood Pressure 149/86 H Pulse Oximetry Oxygen Delivery Oxygen Flow Rate 11/24/22 16:00 11/24/22 18:00 11/24/22 18:00 Temperature Pulse Rate 63 65 Respiratory Rate Blood Pressure 162/102 H Pulse Oximetry Oxygen Delivery Oxygen Flow Rate 11/24/22 12:00 11/24/22 16:00 11/24/22 20:00 Temperature 36.6 C Pulse Rate 69 Respiratory Rate 22 H Blood Pressure 150/87 H Pulse Oximetry 98 96 97 Oxygen Delivery Nasal Cannula Nasal Cannula Oxygen Flow Rate 2 2 11/24/22 20:51 11/24/22 20:00 11/24/22 20:00 Temperature Pulse Rate 77 68 68 Respiratory Rate 20 20 Blood Pressure Pulse Oximetry
[2022-11-25] MEDS: amLODIPine BESYLATE 5 MG TABLET PO (21:26)
[2022-11-26] VITALS (13 sets, daily range): BP systolic 122–134; BP diastolic 68–78; PULSE 56–93; RESP 22; TEMP 35.6–36.5; O2SAT 9–98
[2022-11-26] MEDS: FLUTICASONE PROPIONATE 0.05% NA SPR 16 GM BTL (*BKC) 1 SPRAY NASAL (09:00)
[2022-11-26] MEDS: ATORVASTATIN 40 MG TABLET PO (09:00)
[2022-11-26] MEDS: ENOXAPARIN 100 MG/ML SYRINGE SUB-Q (09:00)
[2022-11-26] MEDS: METOPROLOL SUCCINATE EXT REL 100 MG TABCR PO (09:00)
[2022-11-26] MEDS: ENOXAPARIN 30 MG/0.3 ML SYRINGE SUB-Q (09:00)
[2022-11-26] MEDS: LOSARTAN POTASSIUM 50 MG TABLET PO (09:00)
--- NOTE | 2022-11-26 09:12 | PM.DS ---
DS: Admitting Diagnosis Discharge Date 11/26/22 Admitting Diagnosis SOB DS: Discharge Diagnosis Discharge Diagnosis (1) Pulmonary embolism: Code(s): I26.99 - Other pulmonary embolism without acute cor pulmonale Status: Acute (2) Hyperlipidemia: Code(s): E78.5 - Hyperlipidemia, unspecified Status: Acute (3) Dyspnea on exertion: Code(s): R06.09 - Other forms of dyspnea Status: Acute (4) Apneic spell: Code(s): R06.81 - Apnea, not elsewhere classified Status: Acute (5) Excessive daytime sleepiness: Code(s): G47.19 - Other hypersomnia Status: Acute (6) HTN (hypertension): Code(s): I10 - Essential (primary) hypertension Status: Acute DS: Summary Hospital Course Hospital Course: Patient 62-year-old male came to the hospital complaining of severe shortness of breath Also noted chest tightness during hospital stay CT of the chest was done which showed large saddle pulmonary embolism not requiring any tPA. Patient was hemodynamically stable echo results showed ejection fraction 65% with no right heart strain. Patient blood pressure has been monitored closely the. Patient has been wanting to stop metoprolol because of his fatigue will have him discuss with his primary care physician. Also started on atorvastatin patient has finally agreed to take the medicine does not have any allergy to any statins. Had some reaction of muscle aches with simvastatin but is Koul follow-up with his. primary care physician. Patient also started on losartan and amlodipine prescriptions have been sent Eliquis prescription has been sent to the pharmacy as well he will take as recommended they will be 10 mg twice a day for 7 days followed by 5 mg twice a day for 6 months. Discharge instructions given Time Spent with Patient Time attestation: Total time spent providing and/or coordinating discharge services: Exam Narrative: GENERAL: Well appearing, well-nourished, non-toxic, in no acute distress. HEAD: Normocephalic, atraumatic. NECK: Supple. No adenopathy, no masses. RESPIRATORY: Airway patent, respirations nonlabored. Clear to auscultation bilaterally, no rales, rhonchi, wheezing. CARDIOVASCULAR: Regular rate and rhythm without murmurs, rubs, or gallops. Peripheral pulses 2+ and equal bilaterally. ABDOMINAL: Soft, nontender, nondistended, no hepatosplenomegaly. Normoactive BS. MUSCULOSKELETAL: no Epigastric and no hypochondrial tenderness SKIN: Warm, dry, normal color. No rashes. NEURO: A&O X3. Moves all extremities PSYCHIATRIC: Appropriate mood and affect. Normal interaction. Discharge Plan Discharge Discharging Clinician: Luis Quintana Patient Disposition: Home, Self-Care Activity: as tolerated Diet: heart healthy Discharge Instructions: Advised to get a sleep study as an outpatient. Diet exercise weight loss. Continue Eliquis risk of using blood thinners discussed with patient in detail. Follow-up with the PCP in 2-3 days. Patient Instructions: Antibiotic Form Stand Alone Forms: General Discharge Information Follow-up/Referrals: Jean-Pierre Snowden MD [Primary Care Provider] - 1 Week (Patient recently started on Eliquis for pulmonary embolism) Discharge Medications: New Eliquis DVT-PE Treat 30D Start 5 mg (74 tabs) tablets,dose pack 5 mg PO BID Qty: 74 0RF Rx Instructions: take 10mg po twice a day for 7 days. followed by 5mg BID for 6 months. losartan [Cozaar] 50 mg Tablet 50 mg PO DAILY 30 Days Qty: 30 0RF amlodipine [Norvasc] 5 mg Tablet 5 mg PO HS 30 Days Qty: 30 0RF atorvastatin 40 mg Tablet 40 mg PO DAILY 30 Days Qty: 30 0RF Continued metoprolol succinate [Toprol XL] 100 mg tablet extended release 24 hr 100 mg PO DAILY Qty: 90 2RF Date of admission: 11/25/22 10:47 Primary Care Provider: Jean-Pierre Snowden Admitting Provider: Anurag Kennedy V. Attending physician on admission: Latrice
--- NOTE | 2022-11-26 13:05 | PCRCNOTE ---
Home O2 eval completed. no O2 needed at rest awake or with activity. Pt desats at night. 4L O2 is required nocturnally. [facility] will be DME for O2 set up at home.
--- NOTE | 2022-11-26 13:37 | HOMEO2EVAL ---
Evaluation was performed at [facility] Home Oxygen Evaluation RC: Home Oxygen (O2) Evaluation Start: 11/26/22 11:14 Freq: ONCE Status: Active Protocol: RPE Activity Type Activity Date Activity User E-sign Co-sign Detail Recorded Client Recorded Date Recorded By Document 11/26/22 11:30 [email or web address] [email or web address] 11/26/22 13:04 MELISSA Document 11/26/22 11:35 MELISSA [email or web address] 11/26/22 13:04 MELISSA Document 11/26/22 11:40 MELISSA [email or web address] 11/26/22 13:04 MELISSA 11/26/22 11/26/22 11/26/22 11:30 11:35 11:40 Home O2 Evaluation [Oxygen] -Test Phase Resting Exercise Resting -Oxygen Delivery Room Air Room Air Room Air [Pulse Oximetry] -Pulse Oximetry (90-100 %) 92 97 94 [Pulse Rate] -Pulse Rate (60-100 beats/min) 72 93 86
== END 2022-11-26 15:27 | disposition home or self-care (01) | DRG 176 ==
LOC: ANHED 06:32 → ANHIMU 08:02
PROVIDERS: Internal Medicine; Admitting Provider Internal Medicine; Emergency Provider Emergency Medicine; PCP Emergency Medicine; Visit Provider Internal Medicine
DX: I26.92 Saddle embolus of pulmonary artery without acute cor pulmonale (principal); Z68.41 Body mass index [BMI] 40.0-44.9, adult; I82.811 Embolism and thrombosis of superficial veins of right lower extremity; E78.5 Hyperlipidemia, unspecified; E11.9 Type 2 diabetes mellitus without complications; E66.01 Morbid (severe) obesity due to excess calories; G47.10 Hypersomnia, unspecified; I10 Essential (primary) hypertension; M79.89 Other specified soft tissue disorders; R77.8 Other specified abnormalities of plasma proteins; R09.82 Postnasal drip; R06.81 Apnea, not elsewhere classified; Z20.822 Contact with and (suspected) exposure to COVID-19
CPT/HCPCS: 36415; 71046; 71275; 80053; 80061; 83036; 83690; 84484; 85025; 85610; 85730; 87637; 93005; 93306; 93970; 94640; 94762; 96372; 96374; 99285; A9270; G0378; J0360; J1650; Q9967

== ENCOUNTER 2023-01-25 08:19 | Outpatient (CLI) | payer BC, SELFPAY ==
--- NOTE | 2023-01-29 19:35 | WPDSLEEPSTUD ---
Sleep Study Date of Study: 01/25/23 Ordering Provider: Jean-Pierre Cesar MD Interpreting Physician: Tanya Shanks DO Sleep Study Type: Split Polysomnogram Height: 1.7 m Weight: 124.738 kg Body Mass Index: 43.0 Neck Circumference (inches): 19.5 [place]: 3 Reason for Sleep Study Loud snoring, daytime hypersomnia Sleep History The patient is a 62-year-old male with hypertension,, hyperlipidemia, type 2 diabetes, morbid obesity and history of saddle pulmonary embolism (11/24/2022) that had a sleep study ordered by his placement interviewer for evaluation of SYLVIE. The patient is already on 4 lpm of supplemental oxygen due to nocturnal hypoxemia. The patient is a structural steel equipment erector by trade. He rarely awakens from sleep short of breath. He denies awakening at night with heartburn, belching or cough. He frequently snores and is occasionally loud enough that others complain. He rarely has trouble sleeping when he has a cold. He denies waking up gasping for air throughout the night. He denies having breathing problems at night observed by himself or others. He rarely sweats excessively at night. He denies having heart palpitations or irregular heartbeats during the night. He occasionally falls asleep during the day but never while driving. He denies sleep paralysis, cataplexy and hypnagogic / hypnopompic hallucinations. He denies having trouble at school or work due to sleepiness. He denies feeling afraid of going to sleep. He denies having nightmares. He occasionally remembers his dreams. He denies having thoughts racing through his mind. He denies feeling sad, depressed or anxious. He occasionally has muscular tension. He denies noticing parts of his body jerk. He denies kicking during the night. He denies having crawling and aching feelings in his legs. He rarely has leg pain during the night. He denies grinding his teeth during sleep and denies awakening with morning jaw pain. He denies being bothered by pain during the day but is occasionally awakened by pain during the night. He denies waking up feeling stiff in the morning. He denies waking up with sore or achy muscles. He denies waking up with pain in the neck, spine or other joints. He goes to bed at 10:00 p.m. on weekdays and at 10:30 p.m. on the weekends. It takes him 30 minutes to fall asleep. He wakes up 2-3 times throughout the night to urinate and is able to fall asleep pretty quickly. He he wakes up at 5:00 a.m. on both weekdays and weekends. He typically gets 6-8 hours of sleep per night. He does not stay in bed after waking up in the morning. He currently lives alone. He does not consume any caffeinated beverages within 2 hours of bedtime. He does not engage in physical exercise before bedtime. He will watch television before falling asleep. He will occasionally take naps in the afternoon or the evening and they are refreshing. He denies consuming any caffeinated beverages throughout the day. He denies tobacco, alcohol and recreational drug use. [facility] Past Medical History Medical History HTN (hypertension) Hyperlipidemia IFG (impaired fasting glucose) Malignant melanoma of torso excluding breast Type II diabetes mellitus Surgical History Surgical History Surgical history unknown Family History Family History Father Cerebrovascular accident Social History Social History Smoking status: Never smoker Alcohol intake: never Substance use: never Lack of Transportation: No Lack of Food: Never True Current Housing: I Have Housing Concerned About Future Housing: No Difficulty Paying Gas/Electric Bills: No Difficulty Paying for Meds: No Currently Unemployed: No Education: Trade/Vocational Certificate Difficult
[2023-01-29 19:40] VITALS: BMI 43.0
== END 2023-01-26 06:37 | disposition home or self-care (01) ==
LOC: ANHCSM 08:21
PROVIDERS: PCP Family Medicine; Visit Provider Internal Medicine Pulmonary Disease
DX: G47.33 Obstructive sleep apnea (adult) (pediatric) (principal); G47.19 Other hypersomnia
CPT/HCPCS: 95811

== ENCOUNTER 2023-12-28 00:27 | Day surgery (SDC) | payer OTHER, SELFPAY ==
[2023-12-14 13:11] VITALS: BMI 43.0
--- NOTE | 2023-12-14 15:12 | PC.NURSE ---
Spoke with PATIENT regarding medication ELIQUIS. Pt. verbalizes understanding that the last dose of ELIQUIS is to be taken on 12/25/2023 and the Endoscopist will instruct them when to restart after the procedure.
--- NOTE | 2023-12-24 11:39 | SUR.PREOP ---
Patient called regarding upcoming procedure. Reviewed preop instructions, appointment times, and procedure prep.
--- NOTE | 2023-12-27 20:34 | PM.HPGS ---
History of Present Illness History of Present Illness Consent: Risks, benefits, and alternatives have been discussed and questions answered. Patient agrees to proceed with procedure. Chief complaint: neoplasm screening Narrative: Jean-Pierre Partida is a 63 year old male who is referred for colon cancer screening. Review of Systems Review of Systems: All systems reviewed & are unremarkable except as noted in HPI and below PMFSH Past Medical History Medical History HTN (hypertension) Hyperlipidemia IFG (impaired fasting glucose) Malignant melanoma of torso excluding breast Type II diabetes mellitus Surgical History Surgical History Surgical history unknown Family History Family History Father Cerebrovascular accident Social History Social History Smoking status: Never smoker Alcohol intake: current Substance use: never Substance use type: does not use Lack of Transportation: No Lack of Food: Never True Current Housing: I Have Housing Concerned About Future Housing: No Difficulty Paying Gas/Electric Bills: No Difficulty Paying for Meds: No Currently Unemployed: No Education: Trade/Vocational Certificate Difficulty w/ Childcare or Family Care: No Living arrangements: alone Occupation/Education: occupation Gender identity (if verbalized by the patient): Male Sexual Orientation (if Verbalized by the Patient): Straight or Heterosexual Spiritual care concerns: No Meds Home Medications and Allergies Home Medications Medication Instructions Recorded Confirmed Type apixaban 5 mg tablet (Eliquis) 5 mg PO BID #180 tabs 09/09/23 12/28/23 Rx losartan 50 mg tablet See Rx Instructions .Route 12/23/23 12/28/23 Rx .COMPLEX #90 tabs Allergies Allergy/AdvReac Type Severity Reaction Status Date / Time No Known Allergies Allergy Verified 12/28/23 11:27 Exam Resp: Auscultation: clear to auscultation bilaterally Cardio: Rate: regular rate Rhythm: regular rhythm GI: GI Palp: Yes Soft to palpation and No Tenderness to palpation present (GI) Assessment and Plan Assessment and plan (1) Colon cancer screening: Code(s): Z12.11 - Encounter for screening for malignant neoplasm of colon Status: Acute Assessment and Plan: Colonoscopy with possible biopsy or polypectomy or cautery or injection of substances.
[2023-12-28 11:31] VITALS: BP 163/101; PULSE 62; RESP 18; TEMP 35.9; O2SAT 99
[2023-12-28] MEDS: LACTATED RINGERS 1,000 ML 150 ML IV CONT (11:40)
--- NOTE | 2023-12-28 11:40 | WPDANESEPPF ---
Anes - Initial Pre Proc Eval Procedure: Operation Date: 12/28/23 12:30 Proposed Procedures p Screening Colonoscopy - Andres Shepard MD Date/Time: 12/28/23 11:40 Surgeon: Andres Shepard MD Pre Op Diagnosis: neoplasm screening Patient Data Age: 63 Gender: M Height: 1.7 m Weight: 125.4 kg Last Vital Signs Temp 96.6 F L 12/28/23 11:31 Pulse 62 12/28/23 11:31 Resp 18 12/28/23 11:31 BP 163/101 H 12/28/23 11:31 Pulse Ox 99 12/28/23 11:31 O2 Del Method Room Air 12/28/23 11:31 Allergies Allergy/AdvReac Type Severity Reaction Status Date / Time No Known Allergies Allergy Verified 12/28/23 11:27 Home Medications Medication Instructions Recorded Confirmed Type apixaban 5 mg tablet (Eliquis) 5 mg PO BID #180 tabs 09/09/23 12/28/23 Rx losartan 50 mg tablet See Rx Instructions .Route 12/23/23 12/28/23 Rx .COMPLEX #90 tabs Patient hx anesthesia problems: none Family hx anesthesia problems: none Results Review: All pre-operative results and documents have been reviewed as part of the pre-operative evaluation. [facility] Past Medical History Medical History HTN (hypertension) Hyperlipidemia IFG (impaired fasting glucose) Malignant melanoma of torso excluding breast Type II diabetes mellitus Surgical History Surgical History Surgical history unknown Family History Family History Father Cerebrovascular accident Social History Social History Smoking status: Never smoker Alcohol intake: current Substance use: never Substance use type: does not use Lack of Transportation: No Lack of Food: Never True Current Housing: I Have Housing Concerned About Future Housing: No Difficulty Paying Gas/Electric Bills: No Difficulty Paying for Meds: No Currently Unemployed: No Education: Trade/Vocational Certificate Difficulty w/ Childcare or Family Care: No Living arrangements: alone Occupation/Education: occupation Gender identity (if verbalized by the patient): Male Sexual Orientation (if Verbalized by the Patient): Straight or Heterosexual Spiritual care concerns: No Anes - Eval Final PreProcedure Day of Procedure 12/28/23 11:40 Patient weight: morbidly obese Heart: regular rate and rhythm Lungs: clear to auscultation Airway: Mallampati scale class III Neurological: alert and oriented Last oral intake: >/= 8 hours ASA classification: III Emergent: no Anesthetic plan: proceed Anesthesia type and monitoring: general GIVS and standard monitoring Results Review: All pre-operative results and documents have been reviewed as part of the pre-operative evaluation. Informed Consent: The patient's anesthetic plan and its attendant risks and benefits were discussed with the patient/family/POA. Questions were solicited and answers provided to the satisfaction of the patient/family/POA.
[2023-12-28 13:10] VITALS: BP 110/67; PULSE 71; RESP 18; O2SAT 99
[2023-12-28 13:20] VITALS: BP 107/80; PULSE 74; RESP 18; O2SAT 97
[2023-12-28 13:30] VITALS: BP 120/81; PULSE 77; RESP 20; O2SAT 97
== END 2023-12-28 13:35 | disposition home or self-care (01) ==
PROVIDERS: PCP Family Medicine; Visit Provider Internal Medicine Gastroenterology
PROC: 0DJD8ZZ Inspection of Lower Intestinal Tract, Via Natural or Artificial Opening Endoscopic (ICD-10-PCS; CPT 45378; principal; 2023-12-28 12:30)
DX: Z12.11 Encounter for screening for malignant neoplasm of colon (principal); K63.5 Polyp of colon; K57.30 Diverticulosis of large intestine without perforation or abscess without bleeding; I10 Essential (primary) hypertension; E78.5 Hyperlipidemia, unspecified; E11.9 Type 2 diabetes mellitus without complications; E66.01 Morbid (severe) obesity due to excess calories; Z68.41 Body mass index [BMI] 40.0-44.9, adult; Z79.01 Long term (current) use of anticoagulants; Z85.820 Personal history of malignant melanoma of skin; Z82.49 Family history of ischemic heart disease and other diseases of the circulatory system
CPT/HCPCS: 45380; 88305; J2704; J7120

== ENCOUNTER 2025-04-16 15:31 | Outpatient (CLI) | payer OTHER, SELFPAY ==
--- NOTE | ~2025-04-16 | US_ITS ---
EXAMINATION:US venous doppler LE RT INDICATION:Right leg pain TECHNIQUE: Multiple grayscale, color flow and Doppler images of the right lower extremity deep venous systems were obtained and reviewed. COMPARISON:11/24/2022 FINDINGS: The common femoral, superficial femoral and popliteal veins demonstrate normal respiratory variation, augmentation and compressibility. Color flow is also seen within the posterior tibial, pe roneal, greater saphenous and profunda veins. IMPRESSION: 1: No lower extremity deep venous thrombosis. Reviewed, dictated and finalized at location B.
--- OUTSIDE RECORDS SUMMARY | 2025-04-16 16:23 | XMS_ITS | Clinical Summary ---
Author Organization [facility] [address] [facility] [address] [place] [address] Care Team Providers Care Salt Grinder Name Role Phone Jean-Pierre Snowden MD Primary Care Provide r Family History Medical History Relation Name Comments Cancer Other Family history of cancer - Relation: Grandparent (Added by TW Conv) Relation Name Status Comments Other Social History Tobacco Use Types Packs/Day Years Used Date Smoking Tobacco: Never Personal Safety Answer Date Recorded Getting School Help Needed Not on file 01/21 Sex and Gender Information Value Date Recorded Sex Assigned at Not on file 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
--- OUTSIDE RECORDS SUMMARY | 2025-04-16 16:23 | XMS_ITS | Referral Summary ---
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
== END 2025-04-16 15:32 | disposition home or self-care (01) ==
PROVIDERS: PCP Family Medicine; Visit Provider Nurse Practitioner Family
DX: M79.661 Pain in right lower leg (principal)
CPT/HCPCS: 93971